=== PATIENT | female | born 1955 | race Caucasian/White ===

== ENCOUNTER 2017-05-27 11:40 | Observation (INO) | payer OTHER ==
--- NOTE | 2017-05-27 12:53 | PDOC ---
History of Present Illness - History of Present Illness Initial Comments: 05/27/17 14:17 Patient is a 61 year old female with significant medical hx of COPD, HTN, HLD, and hypothyroidism who is presenting to the ED with two days of intermittent left sided chest pain. The patient complains of chest pain which radiates to her left shoulder and left upper back. She characterizes her pain as "sharp" and rates it 9/10 in severity at its worst. The patient's pain worsens with taking a deep breath, lying supine, bending over, and coughing. Patient also endorses some lightheadedness. She notes that she has a chronic cough from COPD but has not had to increase her inhaler usage. Denies shortness of breath, recent heavy lifting or exertion, leg pain, leg swelling, nausea, vomiting, diarrhea, abdominal pain, fever, or chills. Denies recent travel or history of [place]. <Rhianna Hernandez - Last Filed: 05/27/17 15:53> - General History Source: Patient, Old Records Exam Limitations: No Limitations <Bertha Dacosta - Last Filed: 05/27/17 19:12> - General Chief Complaint: Shortness of Breath Stated Complaint: CHEST PAIN Time Seen by Provider: 05/27/17 12:44 Past History <Rhianna Hernandez - Last Filed: 05/27/17 15:53> - Past Medical History COPD: Yes HTN: Yes Hypercholesterolemia: Yes Thyroid Disease: Yes (hypo) - Psycho/Social/Smoking Cessation Hx Anxiety: No Suicidal Ideation: No Smoking History: Former smoker Have you smoked in the past 12 months: No Information on smoking cessation initiated: No Hx Alcohol Use: No Drug/Substance Use Hx: No Substance Use Type: None <Bertha Dacosta - Last Filed: 05/27/17 19:12> - Past Medical History Allergies/Adverse Reactions: Allergies Allergy/AdvReac Type Severity Reaction Status Date / Time No Known Allergies Allergy Verified 05/27/17 11:49 Home Medications: Ambulatory Orders Esomeprazole Magnesium [Nexium 24Hr] 40 mg PO BID 05/27/17 Levothyroxine [Synthroid -] 75 mcg PO DAILY 05/27/17 Olmesartan Medoxomil [Benicar (Nf)] 20 mg PO DAILY 05/27/17 Ranitidine HCl [Zantac] 300 mg PO HS 05/27/17 Salmeterol/Fluticasone [Advair 100Mcg/50Mcg -] 1 inh PO BID 05/27/17 Triamcinolone Acetonide [Nasacort] 10.8 ml NS BID 05/27/17 Review of Systems - Review of Systems Comments:: 05/27/17 14:28 GENERAL/CONSTITUTIONAL: No fever or chills. No weakness. HEAD, EYES, EARS, NOSE AND THROAT: No change in vision. No ear pain or discharge. No sore throat. CARDIOVASCULAR: Chest pain, lightheadedness. No shortness of breath. RESPIRATORY: Cough (chronic). No wheezing or hemoptysis. GASTROINTESTINAL: No nausea, vomiting, diarrhea or constipation. GENITOURINARY: No dysuria, frequency, or change in urination. MUSCULOSKELETAL: No joint or muscle swelling or pain. No neck or back pain. ENDOCRINE: No increased thirst. No abnormal weight change. SKIN: No rash NEUROLOGIC: No headache, vertigo, loss of consciousness, or change in strength/ sensation. <Rhianna Hernandez - Last Filed: 05/27/17 15:53> *Physical Exam - Vital Signs Last Vital Signs Temp Pulse Resp BP Pulse Ox 98.1 F 71 18 148/83 100 05/27/17 11:49 05/27/17 12:00 05/27/17 12:00 05/27/17 12:00 05/27/17 12:00 - Physical Exam Comments: 05/27/17 14:29 GENERAL: Awake, alert, and fully oriented, in no acute distress HEAD: No signs of trauma EYES: PERRLA, EOMI, sclera anicteric, conjunctiva clear ENT: Auricles normal inspection, hearing grossly normal, nares patent, oropharynx clear without exudates. Moist mucosa NECK: Normal ROM, supple, no lymphadenopathy, JVD, or masses LUNGS: Breath sounds equal, clear to auscultation bilaterally. No wheezes, and no crackles HEART: Regular rate and rhythm, normal S1 and S2, no murmurs, rubs or gallops ABDOMEN: Soft, nontender, normoactive bowel sounds. No guarding, no rebound. No masses EXTREMITIES: +1 bipedal edema. Normal range of motion. No clubbing or cyanosis. No cords, erythema, or tenderness NEUROLOGICAL: Cranial nerves II through XII grossly intact. Normal speech, normal gait SKIN: Warm, Dry, normal turgor, no rashes or lesions noted. HEMATOLOGIC/LYMPHATIC: No anemia, easy bleeding, or history of blood clots. ALLERGIC/IMMUNOLOGIC: No hives or skin allergy. <DavidRhianna - Last Filed: 05/27/17 15:53> - Vital Signs Last Vital Signs Temp Pulse Resp BP Pulse Ox 98.1 F 71 18 160/100 100 05/27/17 11:49 05/27/17 11:49 05/27/17 11:49 05/27/17 11:49 05/27/17 11:49 <Bertha Dacosta - Last Filed: 05/27/17 19:12> Heart Score/ECG Review - History History: Slightly suspicious - Electrocardiogram EKG: Normal - Age Age: 45-65 - Risk Factors Risk Factors Heart Score: Yes Hx Hypercholesterolemia, Yes Hx Hypertension, Yes Smoking History, Yes Positive family hx of cardiac disease, Yes Hx Obesity Based on the list above the patient has:: >/=3 risk factors or Hx atherosclerotic disease - Troponin Troponin: </= normal limit - Score Heart Score - Total: 3 <Bertha Dacosta - Last Filed: 05/27/17 19:12> ED Treatment Course - LABORATORY CBC & Chemistry Diagram: 05/27/17 13:15 05/27/17 13:15 - ADDITIONAL ORDERS Additional order review: Laboratory Results 05/27/17 05/27/17 13:15 13:15 D-Dimer < 200 Sodium 141 Potassium 4.1 Chloride 102 Carbon Dioxide 30 Anion Gap 9 BUN 19 H Creatinine 0.7 Creat Clearance w eGFR > 60 Random Glucose 87 Calcium 9.8 Total Bilirubin 0.4 AST 19 ALT 31 Alkaline Phosphatase 110 Creatine Kinase 186 CK-MB (CK-2) 3.855 H Troponin I < 0.02 B-Natriuretic Peptide 81.31 Total Protein 7.3 Albumin 3.8 05/27/17 13:15 RBC 4.87 MCV 81.8 MCHC 33.1 RDW 14.3 MPV 9.2 Neutrophils % 67.8 Lymphocytes % 21.3 Monocytes % 7.1 Eosinophils % 3.2 Basophils % 0.6 - RADIOLOGY Radiograph Interpretation: 05/27/17 15:53 Chest X-Ray Impression: Arthritic changes. No acute chest pathology. Reported By: Kapil Solorzano MD - Medications Given in the ED: ED Medications Discontinued Medications Generic Name Dose Route Start Last Admin Trade Name Kvng PRN Reason Stop Dose Admin Albuterol/Ipratropium 1 amp 05/27/17 13:09 05/27/17 13:33 Duoneb - NEB 05/27/17 13:10 1 amp ONCE ONE Administration Ketorolac Tromethamine 30 mg 05/27/17 13:09 05/27/17 13:33 Toradol Injection - IVPUSH 05/27/17 13:10 30 mg ONCE ONE Administration <Rhianna Hernandez - Last Filed: 05/27/17 15:53> - LABORATORY CBC & Chemistry Diagram: 05/27/17 13:15 05/27/17 13:15 <Bertha Dacosta - Last Filed: 05/27/17 19:12> Medical Decision Making - Medical Decision Making 05/27/17 13:16 61-year-old female with history of hypertension, hyperlipidemia, COPD who presents the emergency department with 2 day history of intermittent pleuritic chest pain and shortness of breath. Differential diagnosis includes but is not limited to: ACS, PE, pneumonia, pneumothorax, pericarditis, musculoskeletal, anemia, malignancy, toxic/metabolic derangement. Plan: 1. Labs 2. EKG 3. Chest x-ray 4. Pain management 5. Observe and reevaluate 6. We will send off a d-dimer is elevated will get CT scan of the chest 05/27/17 18:47 Addendum: Labs were reviewed and are noted in the EMR. EKG shows normal sinus rhythm at 70 bpm with no acute ST segment changes. The patient was given Toradol with moderate relief. D-dimer was negative therefore a CT scan of the chest was not pursued. The troponin was initially less than 0.02 and the CK although was normal had an elevated MB fraction. A second set of cardiac markers was sent with similar results. Given her cardiac risk factors will admit to telemetry observation for an echocardiogram and a stress test as well as serial cardiac markers and pain management. <Bertha Dacosta - Last Filed: 05/27/17 19:12> *DC/Admit/Observation/Transfer - Attestations Scribe Attestion: 05/27/17 14:30 Documentation prepared by Rhianna Hernandez, acting as electromedical equipment repairer for Bertha Dacosta MD. <Rhianna Hernandez - Last Filed: 05/27/17 15:53> - Discharge Dispostion Admit: Yes - Attestations Physician Attestion: 05/27/17 13:17 I, Dr. Bertha Dacosta, attest that the scribes documentation that appears above has been prepared under my direction and personally reviewed by me in its entirety. I confirmed that the note above accurately reflects all work, treatment, procedures, and medical decision-making performed by me. <Bertha Dacosta - Last Filed: 05/27/17 19:12> Diagnosis at time of Disposition: Chest pain, Shortness of breath - Discharge Dispostion Condition at time of disposition: Stable - Referrals Referrals: Kai Fragoso [Primary Care Provider] -
--- NOTE | 2017-05-27 12:53 | PDOC ---
History of Present Illness - General Chief Complaint: Shortness of Breath Stated Complaint: CHEST PAIN Time Seen by Provider: 05/27/17 12:44 History Source: Patient Exam Limitations: No Limitations - History of Present Illness Initial Comments: CHIEF COMPLAINT: HISTORY OF PRESENT ILLNESS: Vital signs on arrival are notable for BP of 160/100 REVIEW OF SYSTEMS: GENERAL/CONSTITUTIONAL: Subjective fever/chills. No weakness. No weight change. HEAD, EYES, EARS, NOSE AND THROAT: No change in vision. No ear pain or discharge. No sore throat. CARDIOVASCULAR: No chest pain or shortness of breath. RESPIRATORY: No cough, wheezing, or hemoptysis. GASTROINTESTINAL: See history of present illness. GENITOURINARY: No dysuria, frequency, or change in urination. MUSCULOSKELETAL: No joint or muscle swelling or pain. No neck or back pain. SKIN: No rash or easy bruising. NEUROLOGIC: No headache, vertigo, loss of consciousness, or loss of sensation. PHYSICAL EXAM: GENERAL: The patient is awake, alert, and fully oriented, in no acute distress. HEAD: Normal with no signs of trauma. ENT: Pupils equal, round and reactive to light, extraocular movements intact, sclera anicteric, conjunctiva clear. Neck supple. LUNGS: Clear to auscultation bilaterally. Normal excursion. No respiratory distress or use of accessory muscles. CV: RRR, S1/S2, no MRG. Cap refill < 2 sec. ABDOMEN: Soft, non-distended, non-tender even to deep palpation, no hepatomegaly or splenomegaly, no masses. EXTREMITIES: Normal range of motion, no edema. NEUROLOGICAL: Normal speech, normal gait. CN II-XII grossly intact. PSYCH: Normal mood, normal affect. SKIN: Warm, dry, normal turgor, no rashes or lesions noted. Past History - Past Medical History Allergies/Adverse Reactions: Allergies Allergy/AdvReac Type Severity Reaction Status Date / Time No Known Allergies Allergy Verified 05/27/17 11:49 Home Medications: Ambulatory Orders Esomeprazole Magnesium [Nexium 24Hr] 40 mg PO BID 05/27/17 Levothyroxine [Synthroid -] 75 mcg PO DAILY 05/27/17 Olmesartan Medoxomil [Benicar (Nf)] 20 mg PO DAILY 05/27/17 Ranitidine HCl [Zantac] 300 mg PO HS 05/27/17 Salmeterol/Fluticasone [Advair 100Mcg/50Mcg -] 1 inh PO BID 05/27/17 Triamcinolone Acetonide [Nasacort] 10.8 ml NS BID 05/27/17 COPD: Yes HTN: Yes Hypercholesterolemia: Yes Thyroid Disease: Yes (hypo) - Psycho/Social/Smoking Cessation Hx Anxiety: No Suicidal Ideation: No Smoking History: Former smoker Have you smoked in the past 12 months: No Information on smoking cessation initiated: No Hx Alcohol Use: No Drug/Substance Use Hx: No Substance Use Type: None *Physical Exam - Vital Signs Last Vital Signs Temp Pulse Resp BP Pulse Ox 98.1 F 71 18 160/100 100 05/27/17 11:49 05/27/17 11:49 05/27/17 11:49 05/27/17 11:49 05/27/17 11:49 Medical Decision Making - Medical Decision Making A/P:
[2017-05-27] MEDS ORDERED: KETOROLAC TROMETHAMINE 30 MG/1 ML VIAL IVPUSH ONE (13:09)
[2017-05-27] MEDS ORDERED: ALBUTEROL SO4 2.5/IPRATROPIUM 0.5 INH SOL 3 ML VIAL.NEB. NEB ONE ×2 (13:09→13:16)
[2017-05-27] MEDS ORDERED: KETOROLAC TROMETHAMINE 30 MG/1 ML VIAL ONE (13:17)
[2017-05-27 13:20] LABS: BASOPHIL 0.6 % (0-2.0); EOSINOPHIL 3.2 % (0-4.5); MCHC 33.1 g/dl (32.0-36.0); MEAN CELL VOLUME 81.8 fl (80-96); MEAN PLT VOLUME 9.2 fl (7.5-11.1); NEUTROPHILS 67.8 % (42.8-82.8); PLATELET COUNT 247 K/MM3 (134-434); RDW 14.3 % (11.6-15.6); WHITE BLOOD COUNT 9.1 K/mm3 (4.0-10.0)
[2017-05-27 13:47] LABS: ALBUMIN 3.8 g/dl (3.4-5.0); ANION GAP 9 (8-16); CALCIUM 9.8 mg/dL (8.5-10.1); CO2 30 mmol/L (21-32); CREATININE 0.7 mg/dL (0.55-1.02); GLUCOSE,RANDOM 87 mg/dL (74-106); SGOT/AST 19 U/L (15-37); SGPT/ALT 31 U/L (12-78)
[2017-05-27 13:51] LABS: ALK PHOS 110 U/L (45-117); BILIRUBIN,TOTAL 0.4 mg/dL (0.2-1.0); TOT PROT 7.3 g/dl (6.4-8.2); TROPONIN I < 0.02 ng/ml (0.00-0.05)
[2017-05-27 14:36] LABS: URINE APPEARANCE CLEAR; URINE BILIRUBIN NEGATIVE (NEGATIVE); URINE BLOOD 1+ (NEGATIVE); URINE COLOR LTYELLOW; URINE GLUCOSE (UA) NEGATIVE (NEGATIVE); URINE KETONE NEGATIVE (NEGATIVE); URINE LEUK ESTERASE TRACE (NEGATIVE); URINE NITRITE NEGATIVE (NEGATIVE); URINE PROTEIN NEGATIVE (NEGATIVE); URINE UROBILINOGEN NEGATIVE E.U./dl (0.2-1.0)
[2017-05-27 14:37] LABS: URINE MUCUS RARE; URINE RBC 4 /hpf (0-3); URINE WBC 2 /hpf (3-5)
[2017-05-27 18:05] LABS: TROPONIN I 0.02 ng/ml (0.00-0.05)
[2017-05-27] MEDS ORDERED: ASPIRIN 81 MG CHEWABLE TABLETS PO ONE (19:38)
--- NOTE | 2017-05-27 19:44 | HP ---
CHIEF COMPLAINT: Chest Pain, SOB PCP: HISTORY OF PRESENT ILLNESS: This is a 61 y/o female with a past medical history of Hypertension, Hyperlipidemia, COPD, Hypothyroid, GERD. who presents to the ED with midsternal chest pain radiating to her back x 2 days. Patient reports the quality as sharp, spasms intermittently increased with deep inspiration. Patient reports having episodes of nausea since arriving to the ED. Patient reports having a cough taking Mucinex with some relief. Patient reports last Echo several years ago, and Stress Test x 20 yrs without incident. Patient denies recent travel. Patient denies fever, chills, dizziness, AP, vomiting, diarrhea, constipation, dysuria. ER course was notable for: (1) Trop i- neg x2, CK- MB slightly elevated (2) Chest Xray- No acute pathology (3) EKG- NSR, minimal voltage LVH, No St & T wave abnormality, borderline ECG Recent Travel: None PAST MEDICAL HISTORY: See HPI PAST SURGICAL HISTORY: R- Rotator Cuff Social History: Smoking: Former quit 20 yrs ago Alcohol: Denies Drugs: Denies Lives with family, independent Family History: Brother: MD Mother: Lung Ca Father: Liver Ca Allergies No Known Allergies Allergy (Verified 05/27/17 11:49) HOME MEDICATIONS: Home Medications Medication Instructions Recorded Esomeprazole Magnesium [Nexium 40 mg PO BID 05/27/17 24Hr] Levothyroxine [Synthroid -] 75 mcg PO DAILY 05/27/17 Olmesartan Medoxomil [Benicar (Nf)] 20 mg PO DAILY 05/27/17 Ranitidine HCl [Zantac] 300 mg PO HS 05/27/17 Salmeterol/Fluticasone [Advair 1 inh PO BID 05/27/17 100Mcg/50Mcg -] Triamcinolone Acetonide [Nasacort] 10.8 ml NS BID 05/27/17 REVIEW OF SYSTEMS CONSTITUTIONAL: Absent: fever, chills, diaphoresis, generalized weakness, malaise, loss of appetite, weight change HEENT: Absent: rhinorrhea, nasal congestion, throat pain, throat swelling, difficulty swallowing, mouth swelling, ear pain, eye pain, visual changes CARDIOVASCULAR: chest pain, Absent: syncope, palpitations, irregular heart rate, lightheadedness, peripheral edema RESPIRATORY: cough, shortness of breath Absent: dyspnea with exertion, orthopnea, wheezing, stridor, hemoptysis GASTROINTESTINAL: Absent: abdominal pain, abdominal distension, nausea, vomiting, diarrhea, constipation, melena, hematochezia GENITOURINARY: Absent: dysuria, frequency, urgency, hesitancy, hematuria, flank pain, genital pain MUSCULOSKELETAL: Absent: myalgia, arthralgia, joint swelling, back pain, neck pain SKIN: Absent: rash, itching, pallor HEMATOLOGIC/IMMUNOLOGIC: Absent: easy bleeding, easy bruising, lymphadenopathy, frequent infections ENDOCRINE: Absent: unexplained weight gain, unexplained weight loss, heat intolerance, cold intolerance NEUROLOGIC: Absent: headache, focal weakness or paresthesias, dizziness, unsteady gait, seizure, mental status changes, bladder or bowel incontinence PSYCHIATRIC: Absent: anxiety, depression, suicidal or homicidal ideation, hallucinations. PHYSICAL EXAMINATION Vital Signs - 24 hr 05/27/17 05/27/17 05/27/17 11:49 12:00 16:20 Temperature 98.1 F Pulse Rate 71 Pulse Rate [ 71 64 Apical] Respiratory 18 18 20 Rate Blood Pressure 160/100 Blood Pressure 148/83 147/72 [Right Arm] O2 Sat by Pulse 100 100 100 Oximetry (%) GENERAL: Awake, alert, and fully oriented, in no acute distress. HEAD: Normal with no signs of trauma. EYES: Pupils equal, round and reactive to light, extraocular movements intact, sclera anicteric, conjunctiva clear. No lid lag. EARS, NOSE, THROAT: Ears normal, nares patent, oropharynx clear without exudates. Moist mucous membranes. NECK: Normal range of motion, supple without lymphadenopathy, JVD, or masses. LUNGS: Breath sounds equal, clear to auscultation bilaterally. No wheezes, and no crackles. No accessory muscle use. HEART: Regular rate and rhythm, normal S1 and S2 without murmur, rub or gallop. CP is non-reproducible upon palpation ABDOMEN: Soft, nontender, not distended, normoactive bowel sounds, no guarding, no rebound, no masses. No hepatomegaly or splenomegaly. MUSCULOSKELETAL: Normal range of motion at all joints. No bony deformities or tenderness. No CVA tenderness. UPPER EXTREMITIES: 2+ pulses, warm, well-perfused. No cyanosis. No clubbing. No peripheral edema. LOWER EXTREMITIES: 2+ pulses, warm, well-perfused. No calf tenderness. No peripheral edema. NEUROLOGICAL: Cranial nerves II-XII intact. Normal speech. Normal gait. PSYCHIATRIC: Cooperative. Good eye contact. Appropriate mood and affect. SKIN: Warm, dry, normal turgor, no rashes or lesions noted, normal capillary refill. Laboratory Results - last 24 hr 05/27/17 05/27/17 05/27/17 13:15 13:15 13:15 WBC 9.1 RBC 4.87 Hgb 13.2 Hct 39.8 MCV 81.8 MCHC 33.1 RDW 14.3 Plt Count 247 MPV 9.2 Neutrophils % 67.8 Lymphocytes % 21.3 Monocytes % 7.1 Eosinophils % 3.2 Basophils % 0.6 D-Dimer < 200 Sodium 141 Potassium 4.1 Chloride 102 Carbon Dioxide 30 Anion Gap 9 BUN 19 H Creatinine 0.7 Creat Clearance w eGFR > 60 Random Glucose 87 Calcium 9.8 Total Bilirubin 0.4 AST 19 ALT 31 Alkaline Phosphatase 110 Creatine Kinase 186 CK-MB (CK-2) 3.855 H Troponin I < 0.02 B-Natriuretic Peptide 81.31 Total Protein 7.3 Albumin 3.8 Urine Color Urine Appearance Urine pH Urine Protein Urine Glucose (UA) Urine Ketones Urine Blood Urine Nitrite Urine Bilirubin Urine Urobilinogen Ur Leukocyte Esterase Urine RBC Urine WBC Ur Epithelial Cells Urine Mucus 05/27/17 05/27/17 05/27/17 14:31 16:12 17:09 WBC RBC Hgb Hct MCV MCHC RDW Plt Count MPV Neutrophils % Lymphocytes % Monocytes % Eosinophils % Basophils % D-Dimer Sodium Potassium Chloride Carbon Dioxide Anion Gap BUN Creatinine Creat Clearance w eGFR Random Glucose Calcium Total Bilirubin AST ALT Alkaline Phosphatase Creatine Kinase Cancelled 174 CK-MB (CK-2) 3.960 H Troponin I Cancelled 0.02 B-Natriuretic Peptide Total Protein Albumin Urine Color Ltyellow Urine Appearance Clear Urine pH 6.0 Urine Protein Negative Urine Glucose (UA) Negative Urine Ketones Negative Urine Blood 1+ H Urine Nitrite Negative Urine Bilirubin Negative Urine Urobilinogen Negative Ur Leukocyte Esterase Trace H Urine RBC 4 Urine WBC 2 Ur Epithelial Cells Rare Urine Mucus Rare ASSESSMENT/PLAN: This is a 61 y/o female with a PMHx of: HTN, HLD, COPD, Hypothyroid, GERD. Placed in Tele [facility] Chest Pain r/o ACS for further evaluation of their emergent condition. Plan: 1. Card: Chest Pain - r/o ACS vs musculoskeletal strain secondary to excessive cough - Tele monitoring - HEART Score 4 - JULIENNE 1 - Chest Xray- NAD - EKG reviewed no study avail for comparison - Echo in am -Stress Test - Will consider Cardiology consult if CE +, +stress test - Asa ordered for tonight, then daily - NTG sl ordered x1 now - Hypertension - On arrival uncontrolled, now stable - Continue home meds - Monitor BP and renal function - Hyperlipidemia - Continue statin - Monitor LFTs - COPD - stable - Continue Advair, Nasocort - Albuterol neb prn - Hypothyroidism - Continue Levothyroxine - TSH in am - GERD - Continue Zantac Problem List - Problem (1) Chest pain Code(s): R07.9 - CHEST PAIN, UNSPECIFIED (2) Shortness of breath Code(s): R06.02 - SHORTNESS OF BREATH (3) COPD (chronic obstructive pulmonary disease) Code(s): J44.9 - CHRONIC OBSTRUCTIVE PULMONARY DISEASE, UNSPECIFIED (4) HTN (hypertension) Code(s): I10 - ESSENTIAL (PRIMARY) HYPERTENSION (5) HLD (hyperlipidemia) Code(s): E78.5 - HYPERLIPIDEMIA, UNSPECIFIED (6) Hypothyroidism Code(s): E03.9 - HYPOTHYROIDISM, UNSPECIFIED (7) GERD (gastroesophageal reflux disease) Code(s): K21.9 - GASTRO-ESOPHAGEAL REFLUX DISEASE WITHOUT ESOPHAGITIS (8) DVT prophylaxis Code(s): BSG6378 - Visit type - Emergency Visit Emergency Visit: Yes ED Registration Date: 05/27/17 Care time: The patient presented to the Emergency Department on the above date and was hospitalized for further evaluation of their emergent condition. - New Patient This patient is new to me today: Yes Date on this admission: 05/27/17 - Critical Care Critical Care patient: No
[2017-05-27] MEDS ORDERED: ASPIRIN 81 MG CHEWABLE TABLETS ONE (19:54)
[2017-05-27] MEDS ORDERED: NITROGLYCERIN SUBLINGUAL 1/150 0.4 MG TAB SL ONE (20:21)
[2017-05-27] MEDS ORDERED: RANITIDINE HCL 150 MG TABLET (FP) PO SCH (22:00)
[2017-05-27] MEDS ORDERED: FLUTICASONE/SALMETEROL 100 MCG/50 MCG DISKUS IH SCH (22:00)
[2017-05-27] MEDS ORDERED: PATIENT'S OWN MEDICATION (NON-FORMULARY) (Esomeprazole Magnesium [Nexium 24hr] 40 MG) PO SCH (22:00)
[2017-05-27] MEDS ORDERED: RANITIDINE HCL 150 MG TABLET (FP) ONE (23:53)
[2017-05-27] MEDS ORDERED: PANTOPRAZOLE 40 MG TABLET (FP) ONE (23:53)
[2017-05-28] MEDS: PANTOPRAZOLE 40 MG TABLET (FP) PO SCH ×2 (00:04→11:02)
[2017-05-28 00:38] LABS: TROPONIN I < 0.02 ng/ml (0.00-0.05)
[2017-05-28 01:22] VITALS: BMI 33.0
[2017-05-28] MEDS ORDERED: KETOROLAC TROMETHAMINE 30 MG/1 ML VIAL IVPUSH PRN (01:38)
[2017-05-28 03:20] LABS: CHOLESTEROL 152 mg/dL (50-200); LDL CHOLESTEROL (ONLY SJRH) 75 mg/dL (5-100)
--- NOTE | 2017-05-28 03:30 | HOSP ---
Subjective - Review of Symptoms Events since last encounter: Hospitalist Encounter Notified by RN, that the patient is requesting Hep C screening. Explained to RN , that the screening should be done in outpatient with her PCP who can f/u with screening results, since the test is a send out. Physical Examination Vital Signs: Vital Signs Temperature 97.6 F 05/28/17 00:45 Pulse Rate 70 05/28/17 00:45 Respiratory Rate 18 05/28/17 00:45 Blood Pressure 120/55 05/28/17 00:45 O2 Sat by Pulse Oximetry (%) 99 05/28/17 00:45 Labs: Laboratory Results - last 24 hr 05/27/17 05/27/17 05/27/17 03:00 13:15 13:15 WBC 9.1 RBC 4.87 Hgb 13.2 Hct 39.8 MCV 81.8 MCHC 33.1 RDW 14.3 Plt Count 247 MPV 9.2 Neutrophils % 67.8 Lymphocytes % 21.3 Monocytes % 7.1 Eosinophils % 3.2 Basophils % 0.6 D-Dimer < 200 Sodium Potassium Chloride Carbon Dioxide Anion Gap BUN Creatinine Creat Clearance w eGFR Random Glucose Calcium Total Bilirubin AST ALT Alkaline Phosphatase Creatine Kinase CK-MB (CK-2) Troponin I B-Natriuretic Peptide Total Protein Albumin Triglycerides 143 Cholesterol 152 Total LDL Cholesterol 75 HDL Cholesterol 64 H Urine Color Urine Appearance Urine pH Ur Specific [place] Urine Protein Urine Glucose (UA) Urine Ketones Urine Blood Urine Nitrite Urine Bilirubin Urine Urobilinogen Ur Leukocyte Esterase Urine RBC Urine WBC Ur Epithelial Cells Urine Mucus 05/27/17 05/27/17 05/27/17 13:15 14:31 16:12 WBC RBC Hgb Hct MCV MCHC RDW Plt Count MPV Neutrophils % Lymphocytes % Monocytes % Eosinophils % Basophils % D-Dimer Sodium 141 Potassium 4.1 Chloride 102 Carbon Dioxide 30 Anion Gap 9 BUN 19 H Creatinine 0.7 Creat Clearance w eGFR > 60 Random Glucose 87 Calcium 9.8 Total Bilirubin 0.4 AST 19 ALT 31 Alkaline Phosphatase 110 Creatine Kinase 186 Cancelled CK-MB (CK-2) 3.855 H Troponin I < 0.02 Cancelled B-Natriuretic Peptide 81.31 Total Protein 7.3 Albumin 3.8 Triglycerides Cholesterol Total LDL Cholesterol HDL Cholesterol Urine Color Ltyellow Urine Appearance Clear Urine pH 6.0 Ur Specific [place] 1.020 Urine Protein Negative Urine Glucose (UA) Negative Urine Ketones Negative Urine Blood 1+ H Urine Nitrite Negative Urine Bilirubin Negative Urine Urobilinogen Negative Ur Leukocyte Esterase Trace H Urine RBC 4 Urine WBC 2 Ur Epithelial Cells Rare Urine Mucus Rare 05/27/17 05/27/17 17:09 23:50 WBC RBC Hgb Hct MCV MCHC RDW Plt Count MPV Neutrophils % Lymphocytes % Monocytes % Eosinophils % Basophils % D-Dimer Sodium Potassium Chloride Carbon Dioxide Anion Gap BUN Creatinine Creat Clearance w eGFR Random Glucose Calcium Total Bilirubin AST ALT Alkaline Phosphatase Creatine Kinase 174 146 CK-MB (CK-2) 3.960 H Troponin I 0.02 < 0.02 B-Natriuretic Peptide Total Protein Albumin Triglycerides Cholesterol Total LDL Cholesterol HDL Cholesterol Urine Color Urine Appearance Urine pH Ur Specific [place] Urine Protein Urine Glucose (UA) Urine Ketones Urine Blood Urine Nitrite Urine Bilirubin Urine Urobilinogen Ur Leukocyte Esterase Urine RBC Urine WBC Ur Epithelial Cells Urine Mucus Current Medications Generic Name Dose Route Start Last Admin Trade Name Freq PRN Reason Stop Dose Admin Aspirin 81 mg 05/28/17 10:00 Asa - PO DAILY REPLACED BY [facility] Budesonide/Formoterol Fumarate 2 puff 05/28/17 10:00 Symbicort 160/4.5mcg - IH BID REPLACED BY [facility] Fluticasone Propionate 1 spray 05/28/17 10:00 Flonase - NS BID REPLACED BY [facility] Ketorolac Tromethamine 30 mg 05/28/17 01:38 05/28/17 02:05 Toradol Injection - IVPUSH 06/02/17 01:37 30 mg Q6H PRN Administration PAIN Levothyroxine Sodium 75 mcg 05/28/17 07:00 Synthroid - PO ACBK DORENE Pantoprazole Sodium 40 mg 05/27/17 22:00 05/28/17 00:04 Protonix - PO 40 mg BID DORENE Administration Ranitidine HCl 300 mg 05/27/17 22:00 05/28/17 00:04 Zantac - PO Not Given HS REPLACED BY [facility] Valsartan 160 mg 05/28/17 10:00 Diovan - PO DAILY REPLACED BY [facility] Last Vital Signs Temp Pulse Resp BP Pulse Ox 97.6 F 70 18 120/55 99 05/28/17 00:45 05/28/17 00:45 05/28/17 00:45 05/28/17 00:45 05/28/17 00:45 Intake & Output 06/05/26/17 05/27/17 05/28/17 23:59 23:59 23:59 23:59 Weight 72.575 kg 76.839 kg
[2017-05-28 06:47] LABS: BASOPHIL 0.7 % (0-2.0); EOSINOPHIL 3.3 % (0-4.5); MCH 26.5 pg (25.7-33.7); MCHC 32.4 g/dl (32.0-36.0); MEAN CELL VOLUME 81.7 fl (80-96); MEAN PLT VOLUME 9.6 fl (7.5-11.1); NEUTROPHILS 65.4 % (42.8-82.8); PLATELET COUNT 234 K/MM3 (134-434); WHITE BLOOD COUNT 9.3 K/mm3 (4.0-10.0)
[2017-05-28] MEDS ORDERED: LEVOTHYROXINE NA 75 MCG TABLET (FP) PO SCH (07:00)
[2017-05-28 07:37] LABS: ANION GAP 8 (8-16); CALCIUM 9.3 mg/dL (8.5-10.1); CO2 28 mmol/L (21-32); CREATININE 0.8 mg/dL (0.55-1.02); GLUCOSE,RANDOM 91 mg/dL (74-106); PHOSPHOROUS 3.9 mg/dL (2.5-4.9)
[2017-05-28 07:48] LABS: THYROID STIMULATING HORMONE 2.92 uIU/ml (0.358-3.74)
[2017-05-28 09:12] LABS: HIV 1 & 2 AB NEGATIVE; HIV 1 AGp24 NEGATIVE
[2017-05-28] MEDS ORDERED: PATIENT'S OWN MEDICATION (NON-FORMULARY) (Olmesartan Medoxomil 20 MG) PO SCH (10:00)
[2017-05-28] MEDS ORDERED: BUDESONIDE/FORMETEROL FUMARATE 160/4.5 mcg INHALER IH SCH (10:00)
[2017-05-28] MEDS ORDERED: FLUTICASONE PROP 0.05% 16 GM NASAL SPRAY NS SCH (10:00)
[2017-05-28] MEDS ORDERED: VALSARTAN 160 MG TABLET (UD) PO SCH (10:00)
[2017-05-28] MEDS ORDERED: ASPIRIN 81 MG CHEWABLE TABLETS PO SCH (10:00)
[2017-05-28] MEDS ORDERED: FLUTICASONE/SALMETEROL 100 MCG/50 MCG DISKUS IH SCH (10:00)
--- NOTE | 2017-05-28 12:54 | TRE ---
Protocol Name : MICHAEL Max Work Load (METS*10) : 70 Time In Exercise Phase : 00:06:04 Max. Systolic BP : 168 mmHg Max Diastolic BP : 84 mmHg Max Heart Rate : 137 BPM Max Predicted Heart Rate : 160 BPM Reason For Termination : Target Heart Rate Achieved Stress Protocol : MICHAEL Rest HR : 82 BPM PeakEx METs : 7.0 METS Recovery ECG Response (OLD) : Diagnosis : [address] depression at peak exercise. no arrhythmias or ischemic symptoms Impressions positive EST for sighs of inducible ischemia. Confirmed by CHANNING BURRIS, GISEL ([id number]) on 05/28/2017 12:53:55 PM
--- NOTE | 2017-05-28 13:04 | CON.CARD ---
Consult Consult Specialty:: cardiology Referred by:: Lauren Reason for Consultation:: Chest pain - History of Present Illness Chief Complaint: Chest pain History of Present Illness: The patient is a 61-year-old female, former smoker, history of hypertension, hyperlipidemia, COPD, hypothyroidism, GERD, now presenting with left sided chest pains radiating to the back. The patient stated that the symptoms began approximately 2 days ago. The symptoms will occur when the patient moves her arm to the back or takes deep breaths. The patient reports no exertional symptoms. Denied chest pains, shortness of breath, palpitations while walking. The patient had a stress ECG test earlier today. She walked for 6 minutes on the Clay protocol, achieving 85% MPHR. The study was stopped because of fatigue. She had no chest pains on the treadmill. The ECG showed upsloping ST depressions. My unofficial interpretation is that this was a normal stress ECG. - History Source History Provided By: Patient, Medical Record Limitations to Obtaining History: No Limitations - Past Medical History Cardio/Vascular: Yes: HTN, Hyperlipdemia Pulmonary: Yes: COPD Gastrointestinal: Yes: GERD - Alcohol/Substance Use Hx Alcohol Use: No History of Substance Use: reports: None - Smoking History Smoking history: Former smoker Have you smoked in the past 12 months: No If you are a former smoker, when did you quit?: 20 years ago Home Medications - Allergies Allergies/Adverse Reactions: Allergies Allergy/AdvReac Type Severity Reaction Status Date / Time No Known Allergies Allergy Verified 05/27/17 11:49 - Home Medications Home Medications: Ambulatory Orders Esomeprazole Magnesium [Nexium 24Hr] 40 mg PO ACBK 05/27/17 Levothyroxine [Synthroid -] 75 mcg PO DAILY 05/27/17 Olmesartan Medoxomil [Benicar (Nf)] 40 mg PO DAILY 05/27/17 Ranitidine HCl [Zantac] 300 mg PO HS 05/27/17 Triamcinolone Acetonide [Nasacort] 10.8 ml NS BID 05/27/17 Salmeterol/Fluticasone [Advair 500Mcg/50Mcg] 1 inh PO BID 05/28/17 Review of Systems - Review of Systems Constitutional: reports: No Symptoms Eyes: reports: No Symptoms HENT: reports: No Symptoms Neck: reports: No Symptoms Cardiovascular: reports: Chest Pain Respiratory: reports: Other (Pleuritic chest pain) Genitourinary: reports: No Symptoms Breasts: reports: No Symptoms Reported Musculoskeletal: reports: No Symptoms Integumentary: reports: No Symptoms Neurological: reports: No Symptoms Endocrine: reports: No Symptoms Hematology/Lymphatic: reports: No Symptoms Psychiatric: reports: No Symptoms - Risk Factors Known Risk Factors: Yes: Hypercholesterolemia, Hypertension Vital Signs: Vital Signs Temperature 97.7 F 05/28/17 09:27 Pulse Rate 70 05/28/17 09:27 Respiratory Rate 17 05/28/17 09:27 Blood Pressure 134/77 05/28/17 09:27 O2 Sat by Pulse Oximetry (%) 99 05/28/17 00:45 Constitutional: Yes: Well Nourished, No Distress Eyes: Yes: WNL HENT: Yes: WNL Neck: Yes: WNL, Supple Respiratory: Yes: WNL Gastrointestinal: Yes: WNL Renal/: Yes: WNL Cardiovascular: Yes: WNL, Regular Rate and Rhythm Heart Sounds: Yes: S1, S2 Musculoskeletal: Yes: Muscle Pain Extremities: Yes: WNL Edema: No Peripheral Pulses: 2+ Left Carotid, 2+ Right Carotid, 2+ Left Femoral, 2+ Right Femoral, 2+ Left Popliteal, 2+ Right Popliteal, 2+ Left Doralis Pedis, 2+ Right Dorsalis Pedis Integumentary: Yes: WNL Neurological: Yes: WNL ...Motor Strength: WNL Psychiatric: Yes: WNL - Other Data Labs, Other Data: CBC, BMP 05/28/17 05:20 05/28/17 05:20 Troponin, BNP 05/27/17 23:50 Troponin I < 0.02 Troponin, BNP 05/27/17 23:50 Troponin I < 0.02 Assessment/Plan 69-year-old female presenting with reproducible chest and back pains. Currently comfortable. There is no evidence of ischemia nor acute coronary syndrome. The patient walked for 6 minutes on a Clay protocol earlier today. She had absolutely no chest pain on the treadmill. The ECG showed upsloping ST depressions, with a wavy baseline. My unofficial interpretation is that this is not ischemic. There is no need for further cardiac workup at this point. There is no need for cardiac monitoring. I believe that the patient may safely be discharged. Outpatient follow-up with our group. Please call us PRN.
[2017-05-28 14:05] VITALS: BP 127/84; PULSE 74; TEMP 98.1
--- NOTE | 2017-05-28 15:54 | DS ---
Physical Exam: SUBJECTIVE: Patient seen and examined OBJECTIVE: Vital Signs Period Temp Pulse Resp BP Sys/Marley Pulse Ox Last 24 Hr 97.1 F-98.2 F 65-98 17-18 120-161/55-97 99-99 PHYSICAL EXAM GENERAL: The patient is awake, alert, and fully oriented, in no acute distress. HEAD: Normal with no signs of trauma. EYES: PERRL, extraocular movements intact, sclera anicteric, conjunctiva clear. ENT: Ears normal, nares patent, oropharynx clear without exudates, moist mucous membranes. NECK: Trachea midline, full range of motion, supple. LUNGS: Breath sounds equal, clear to auscultation bilaterally, no wheezes, no crackles, no accessory muscle use. HEART: Regular rate and rhythm, S1, S2 without murmur, rub or gallop. ABDOMEN: Soft, nontender, nondistended, normoactive bowel sounds, no guarding, no rebound, no hepatosplenomegaly, no masses. EXTREMITIES: 2+ pulses, warm, well-perfused, no edema. NEUROLOGICAL: Cranial nerves II through XII grossly intact. Normal speech, gait not observed. PSYCH: Normal mood, normal affect. SKIN: Warm, dry, normal turgor, no rashes or lesions noted. LABS Laboratory Results - last 24 hr 05/27/17 05/28/17 05/28/17 23:50 05:20 05:20 WBC 9.3 RBC 4.69 Hgb 12.4 Hct 38.3 MCV 81.7 MCHC 32.4 RDW 14.0 Plt Count 234 MPV 9.6 Neutrophils % 65.4 Lymphocytes % 23.2 Monocytes % 7.4 Eosinophils % 3.3 Basophils % 0.7 Sodium 142 Potassium 4.2 Chloride 106 Carbon Dioxide 28 Anion Gap 8 BUN 21 H Creatinine 0.8 Random Glucose 91 Hemoglobin A1c % Calcium 9.3 Phosphorus 3.9 Magnesium 2.0 Creatine Kinase 146 Troponin I < 0.02 TSH 2.92 HIV 1&2 Antibody Screen HIV P24 Antigen 05/28/17 05/28/17 05:20 05:20 WBC RBC Hgb Hct MCV MCHC RDW Plt Count MPV Neutrophils % Lymphocytes % Monocytes % Eosinophils % Basophils % Sodium Potassium Chloride Carbon Dioxide Anion Gap BUN Creatinine Random Glucose Hemoglobin A1c % 6.0 Calcium Phosphorus Magnesium Creatine Kinase Troponin I TSH HIV 1&2 Antibody Screen Negative HIV P24 Antigen Negative HOSPITAL COURSE: Date of Admission:05/27/17 Date of Discharge: 05/28/17 Discharge Summary Reason For Visit: SOB/CHEST PAIN Current Active Problems COPD (chronic obstructive pulmonary disease) (Acute) Chest pain (Acute) DVT prophylaxis (Acute) GERD (gastroesophageal reflux disease) (Acute) HLD (hyperlipidemia) (Acute) HTN (hypertension) (Acute) Hypothyroidism (Acute) Shortness of breath (Acute) Condition: Stable - Instructions Diet, Activity, Other Instructions: It is strongly recommended that you followup with Dr. Case, the employment specialist/program manager who saw you during your hospital stay. His contact information is enclosed in this discharge packet. You should call his office and make an appointment. Return to the emergency department for any new or worsening symptoms. Referrals: Kai Fragoso [Primary Care Provider] - Cesar Case MD [Staff Physician] - 2 Weeks - Home Medications Comprehensive Discharge Medication List: Ambulatory Orders Esomeprazole Magnesium [Nexium 24Hr] 40 mg PO ACBK 05/27/17 Levothyroxine [Synthroid -] 75 mcg PO DAILY 05/27/17 Olmesartan Medoxomil [Benicar -] 40 mg PO DAILY 05/27/17 Ranitidine HCl [Zantac] 300 mg PO HS 05/27/17 Triamcinolone Acetonide [Nasacort] 10.8 ml NS BID 05/27/17 Aspirin [ASA -] 81 mg PO DAILY tab.chew 05/28/17 Salmeterol/Fluticasone [Advair 100Mcg/50Mcg -] 1 puff IH BID inhaler 05/28/17 Salmeterol/Fluticasone [Advair 500Mcg/50Mcg -] 1 inh PO BID 05/28/17
--- NOTE | 2017-05-30 17:29 | EKG ---
Test Reason : Blood Pressure : / mmHG Vent. Rate : 068 BPM Atrial Rate : 068 BPM P-R Int : 160 ms QRS Dur : 082 ms QT Int : 382 ms P-R-T Axes : 054 -27 039 degrees QTc Int : 406 ms NORMAL SINUS RHYTHM MINIMAL VOLTAGE CRITERIA FOR LVH, MAY BE NORMAL VARIANT BORDERLINE ECG WHEN COMPARED WITH ECG OF 08-SEP-2007 12:04, NO SIGNIFICANT CHANGE WAS FOUND Confirmed by MD MARILY, ANDREW ([id number]) on 05/30/2017 5:29:19 PM Referred By: Confirmed By:ANDREW CALIXTO MD
== END 2017-05-28 16:10 | disposition home or self-care (01) ==
LOC: JER 11:40 → JERBED 20:24 → JICU 05-28 00:24 → J2W 05-28 01:51
PROVIDERS: ADMIT Internal Medicine; ATTEND Nurse Practitioner Acute Care
PROC: 3E0333Z Introduction of Anti-inflammatory into Peripheral Vein, Percutaneous Approach (ICD-10-PCS; principal; 2017-05-27)
PROC: 3E0F7GC Introduction of Other Therapeutic Substance into Respiratory Tract, Via Natural or Artificial Opening (ICD-10-PCS; 2017-05-27)
DX: R07.9 Chest pain, unspecified (principal); R06.02 Shortness of breath; I10 Essential (primary) hypertension; E78.5 Hyperlipidemia, unspecified; E03.9 Hypothyroidism, unspecified; J44.9 Chronic obstructive pulmonary disease, unspecified; Z87.891 Personal history of nicotine dependence; K21.9 Gastro-esophageal reflux disease without esophagitis
CPT/HCPCS: 36415; 71020-TC; 80048; 80053; 80061; 81003; 81015; 82550; 82553; 83036; 83721; 83735; 83880; 84100; 84443; 84484; 85025; 85379; 87389; 93005; 93010; 93017; 93018; 93306-TC; 99285-25; G0378

== ENCOUNTER 2019-11-23 20:22 | Emergency (ER) | payer BC ==
--- NOTE | 2019-11-23 20:28 | PDOC ---
History of Present Illness - General Chief Complaint: Injury Stated Complaint: RIGHT FOOT INJURY Time Seen by Provider: 11/23/19 20:27 History Source: Patient - History of Present Illness Initial Comments: 11/23/19 20:40 right 4th toe bruising Is this a multiple visit Asthma Patient?: No Timing/Duration: 24 hours Severity: mild Associated Symptoms: reports: denies symptoms Aspirin Received prior to arrival: Yes: 81 mg x 1 Past History - Travel Traveled outside of the country in the last 30 days: No Close contact w/someone who was outside of country & ill: No - Past Medical History Allergies/Adverse Reactions: Allergies Allergy/AdvReac Type Severity Reaction Status Date / Time No Known Allergies Allergy Verified 11/23/19 20:44 Home Medications: Ambulatory Orders Levothyroxine [Synthroid -] 75 mcg PO DAILY 05/27/17 Olmesartan Medoxomil [Benicar -] 40 mg PO DAILY 05/27/17 Triamcinolone Acetonide [Nasacort] 10.8 ml NS BID 05/27/17 Aspirin [ASA -] 81 mg PO DAILY tab.chew 05/28/17 Salmeterol/Fluticasone [Advair 500Mcg/50Mcg -] 1 inh PO BID 05/28/17 Ascorbic Acid [C-1000] 1,000 mg PO DAILY 11/23/19 Atorvastatin Ca [Lipitor] 10 mg PO HS 11/23/19 Cholecalciferol (Vitamin D3) [Vitamin D3] 2,000 unit PO DAILY 11/23/19 Mecobalamin [B-12] 2,000 mcg SL DAILY 11/23/19 Asthma: Yes COPD: Yes GI Disorders: Yes (gerd) HTN: Yes Hypercholesterolemia: Yes Thyroid Disease: Yes (hypothyroidism) - Surgical History Orthopedic Surgery: Yes (rotator cuff sx) - Psycho Social/Smoking Cessation Hx Smoking History: Former smoker Have you smoked in the past 12 months: No If you are a former smoker, when did you quit?: 20 years ago Cigars Per Day: 0 Hx Alcohol Use: No Drug/Substance Use Hx: No Substance Use Type: None Hx Substance Use Treatment: No Review of Systems - Review of Systems Constitutional: No: Symptoms Reported, See HPI, Chills, Diaphoresis, Fever, Loss of Appetite, Malaise, Night Sweats, Weakness, Weight Stable, Unintentional Wgt. Loss, Unexplained wgt Loss, Other HEENTM: No: Symptoms Reported, See HPI, Eye Pain, Blurred Vision, Tearing, Recent change in vision, Double Vision, Cataracts, Ear Pain, Ocular Prothesis, Ear Discharge, Nose Pain, Nose Congestion, Tinnitus, Nose Bleeding, Hearing Loss , Throat Pain, Throat Swelling, Mouth Pain, Dental Problems, Difficulty Swallowing, Mouth Swelling, Other Respiratory: No: Symptoms reported, See HPI, Cough, Orthopnea, Shortness of Breath, SOB with Exertion, SOB at Rest, Stridor, Wheezing, Productive cough, Hemoptysis, Other Cardiac (ROS): No: Symptoms Reported, See HPI, Chest Pain, Edema, Irregular Heart Rate, Lightheadedness, Palpitations, Syncope, Chest Tightness, Other ABD/GI: No: Symptoms Reported, See HPI, Abdominal Distended, Abd. Pain w/ defecation, Blood Streaked Bowels, Constipated, Diarrhea, Difficulty Swallowing , Nausea, Poor Appetite, Poor Fluid Intake, Rectal Bleeding, Vomiting, Indigestion, Abdominal cramping, Tarry Stools, Other : No: Symptoms Reported, See HPI, Burning, Dysuria, Discharge, Frequency, Flank Pain, Hematuria, Incontinence, Pain, Urgency, Testicular Mass, Testicular Swelling, Lesions, Testicular Pain, Other Musculoskeletal: Yes: Joint Pain (right hip) Integumentary: Yes: Change in Color (left index finger ). No: Symptoms Reported , See HPI, Bruising, Change in Hair/Nails, Dryness, Erythema, Flushing, Lesions , Lumps, Pallor, Pruritus, Rash, Sweating, Other Neurological: No: Symptoms reported, See HPI, Headache, Numbness, Paresthesia, Pre-Existing Deficit, Seizure, Tingling, Tremors, Weakness, Unsteady Gait, Ataxia, Dizziness, Other Psychiatric: No: Anxiety, Depression, Frequent Crying, Stressors, Sleep Pattern Change, Emotional Problems, Mood Swings, Change in Appetite, Other Endocrine: No: Symptoms Reported, See HPI, Excessive Sweating, Flushing, Intolerance to Cold, Intolerance to Heat, Increased Hunger, Increased Thirst, Increased Urine, Unexplained Weight Gain, Unexplained Weight Loss, Change in Weight, Other Hematologic/Lymphatic: No: Symptoms Reported, See HPI, Anemia, Blood Clots, Easy Bleeding, Easy Bruising, Bleeding Diathesis, Lymph Node Abnormalities, Swollen Glands, Other *Physical Exam - Physical Exam General Appearance: Yes: Nourished, Appropriately Dressed. No: Apparent Distress HEENT: positive: EOMI, EASTON, Normal ENT Inspection, Normal Voice, Symmetrical Neck: positive: Normal Thyroid, Supple. negative: Tender, Trachea midline Respiratory/Chest: positive: Lungs Clear, Normal Breath Sounds. negative: Respiratory Distress, Accessory Muscle Use Cardiovascular: positive: Regular Rhythm, Regular Rate, S1, S2 Gastrointestinal/Abdominal: positive: Normal Bowel Sounds, Soft Musculoskeletal: positive: Normal Inspection. negative: CVA Tenderness Extremity: positive: Normal Capillary Refill, Normal Inspection, Normal Range of Motion, Coldness (all fingers cold) Integumentary: positive: Normal Color, Dry, Cold (foners) Neurologic: positive: [employer] II-XII NML intact, Fully Oriented, Alert, Normal Mood/ Affect, Normal Response, Motor Strength 5/5 Medical Decision Making - Medical Decision Making 11/23/19 20:46 Pt will have a foot XR; if broken I will huma tape her toe and send her with ortho follow up. 11/23/19 20:54 Pt has a hx of obesity and HTN and high cholesterol. She has COPD and she quit smoking 20 years ago. 11/23/19 21:08 XRAY normal; pt is stable for discharge home. Follow with Daphne villarreals as needed Discharge - Discharge Information Problems reviewed: Yes Clinical Impression/Diagnosis: Toe contusion Condition: Stable - Admission No - Follow up/Referral Referrals: Kai Fragoso [Primary Care Provider] - - Patient Discharge Instructions Patient Printed Discharge Instructions: Toe Sprain - Post Discharge Activity
[2019-11-23 20:40] VITALS: BP 173/83; PULSE 95; TEMP 98.5; BMI 32.4
== END 2019-11-23 21:09 | disposition home or self-care (01) ==
LOC: FER 20:22
DX: S90.121A Contusion of right lesser toe(s) without damage to nail, initial encounter (principal); X58.XXXA Exposure to other specified factors, initial encounter; Y93.9 Activity, unspecified; Y92.9 Unspecified place or not applicable; I10 Essential (primary) hypertension; E78.00 Pure hypercholesterolemia, unspecified; E03.9 Hypothyroidism, unspecified; J44.9 Chronic obstructive pulmonary disease, unspecified; K21.9 Gastro-esophageal reflux disease without esophagitis; Z87.891 Personal history of nicotine dependence; E66.9 Obesity, unspecified; Z68.32 Body mass index [BMI] 32.0-32.9, adult
CPT/HCPCS: 73630-TC-RT-FY; 99282-25

== ENCOUNTER 2024-05-08 18:34 | Inpatient (IN) | payer OTHER, BC ==
[2024-05-08 21:33] LABS: BASO % 0.8 % (0-2.0); EOS % 2.6 % (0-4.5); LYMPH % 24.8 % (8-40); MCH 27.6 pg (25.7-33.7); MCHC 33.3 g/dl (32.0-36.0); MEAN CELL VOLUME 82.9 fl (80-96); MEAN PLT VOLUME 8.5 fl (7.5-11.1); MONO % 7.9 % (3.8-10.2); NEUT % 63.9 % (42.8-82.8); PLATELET COUNT 256 10^3/uL (134-434); RBC 4.71 M/mm3 (3.60-5.2); RDW 13.9 % (11.6-15.6); WHITE BLOOD COUNT 8.6 K/mm3 (4.0-10.0)
[2024-05-08 21:48] LABS: CHLORIDE 116 mmol/L (98-107); SODIUM 147 mmol/L (136-145)
[2024-05-08 21:51] LABS: ALBUMIN 2.9 g/dl (3.4-5.0); BLOOD UREA NITROGEN 12.6 mg/dL (7-18); CO2 24 mmol/L (21-32); GLUCOSE,RANDOM 71 mg/dL (74-106); MAGNESIUM 1.4 mg/dL (1.8-2.4)
[2024-05-08 21:53] LABS: SGPT/ALT 26 U/L (13-61)
[2024-05-08 21:54] LABS: CREATININE 0.5 mg/dL (0.55-1.3); PHOSPHOROUS 3.6 mg/dL (2.5-4.9); SGOT/AST 15 U/L (15-37)
[2024-05-08 21:55] LABS: BILIRUBIN,TOTAL 0.6 mg/dL (0.2-1); TOT PROT 5.3 g/dl (6.4-8.2)
[2024-05-08 21:57] LABS: ALK PHOS 78 U/L (45-117); ANION GAP 7 mmol/L (4-13); CALCIUM 5.7 mg/dL (8.5-10.1); POTASSIUM 2.9 mmol/L (3.5-5.1)
[2024-05-08] MEDS ORDERED: POTASSIUM CHLORIDE TABS 20 MEQ TABLET.ER (FP) PO ONE (22:25)
[2024-05-08] MEDS ORDERED: MAGNESIUM SULFATE IN WATER 2 GM/50 ML IVPB IVPB ONE (22:26)
[2024-05-08] MEDS ORDERED: MAGNESIUM 1GM/D5W - 1 GM/100 ML IVPB IVPB ONE (22:31)
[2024-05-08] MEDS: DEXTROSE 5%-NORMAL SALINE 500 ML IV ONE (22:48)
[2024-05-08] MEDS: MAGNESIUM SULF 50% (8.12 MEQ/2 ML-1 GM VIAL) IVPB ONE (22:49)
[2024-05-08] MEDS: POTASSIUM CHLORIDE TABS 20 MEQ TABLET.ER (FP) PO ONE (22:49)
[2024-05-08] MEDS ORDERED: CALCIUM GLUCONATE 10% - 1,000 MG/10 ML VIAL ONE (23:13)
[2024-05-08] MEDS: CALCIUM GLUCONATE 10% - 1,000 MG/10 ML VIAL IVPB ONE (23:27)
[2024-05-09] MEDS: ERGOCALCIFEROL (VIT D2) 50,000 UNIT (1.25 MG) CAPSULE PO ONE (00:55)
[2024-05-09] MEDS: POTASSIUM CHLORIDE ORAL LIQUID 20 MEQ/15 ML PO ONE (00:55)
[2024-05-09] MEDS ORDERED: POTASSIUM CHLORIDE ORAL LIQUID 20 MEQ/15 ML ONE (00:57)
[2024-05-09] MEDS: D5-1/2NS+40 MEQ KCL - 40 MEQ/1,000 ML INFUS.BAG IV SCH (01:17)
[2024-05-09] MEDS: TRIMETHOBENZAMIDE HCL 200MG/2ML INJ IM ONE (02:26)
[2024-05-09] MEDS: CALCIUM (OYSTER SHELL) 500 MG TABLET (FP) PO ONE (03:57)
[2024-05-09 05:04] VITALS: BMI 31.4
[2024-05-09] MEDS: LEVOTHYROXINE NA 75 MCG TABLET (FP) PO SCH (06:35)
[2024-05-09 08:08] LABS: POTASSIUM 4.1 mmol/L (3.5-5.1)
[2024-05-09 08:12] LABS: BLOOD UREA NITROGEN 10.7 mg/dL (7-18)
[2024-05-09 08:13] LABS: ALBUMIN 3.3 g/dl (3.4-5.0)
[2024-05-09 08:15] LABS: CREATININE 0.8 mg/dL (0.55-1.3)
[2024-05-09 08:17] LABS: BILIRUBIN,TOTAL 0.8 mg/dL (0.2-1); TOT PROT 5.9 g/dl (6.4-8.2)
[2024-05-09 08:21] LABS: BASO % 0.5 % (0-2.0); EOS % 4.6 % (0-4.5); HEMATOCRIT 38.7 % (32.4-45.2); HEMOGLOBIN 12.9 GM/dL (10.7-15.3); LYMPH % 23.3 % (8-40); MCH 27.4 pg (25.7-33.7); MCHC 33.3 g/dl (32.0-36.0); MEAN CELL VOLUME 82.4 fl (80-96); MEAN PLT VOLUME 8.7 fl (7.5-11.1); NEUT % 63.6 % (42.8-82.8); PLATELET COUNT 242 10^3/uL (134-434); RDW 14.2 % (11.6-15.6); WHITE BLOOD COUNT 7.4 K/mm3 (4.0-10.0)
[2024-05-09 08:28] LABS: CALCIUM 7.1 mg/dL (8.5-10.1)
[2024-05-09] MEDS: FAMOTIDINE 40 MG TABLET PO SCH (09:04)
[2024-05-09] MEDS: BUDESONIDE/FORMETEROL FUMARATE 160/4.5 mcg INHALER IH SCH (09:05)
[2024-05-09] MEDS: CALCITRIOL 0.25 MCG CAPSULE (FP) PO SCH ×2 (09:05→17:44)
[2024-05-09] MEDS: LOSARTAN POTASSIUM 50 MG TABLET PO SCH (09:05)
[2024-05-09] MEDS: CALCIUM (OYSTER SHELL) 500 MG TABLET (FP) PO SCH ×2 (09:05→09:59)
[2024-05-09] MEDS ORDERED: CALCITRIOL 0.25 MCG CAPSULE (FP) PO SCH (10:00)
[2024-05-09] MEDS ORDERED: CHOLECALCIFEROL (VIT D3) 1,000 UNIT (25 MCG) TABLET PO SCH (10:00)
[2024-05-09] MEDS: ACETAMINOPHEN 325 MG TABLET (FP) PO PRN (13:42)
[2024-05-09] MEDS: PANTOPRAZOLE 20 MG TABLET PO SCH (17:49)
[2024-05-09] MEDS: ATORVASTATIN CA 10 MG TABLET (FP) PO SCH (21:28)
[2024-05-09] MEDS ORDERED: CALCIUM (OYSTER SHELL) 500 MG TABLET (FP) PO ONE (23:07)
[2024-05-10 10:09] LABS: POTASSIUM 4.2 mmol/L (3.5-5.1)
[2024-05-10 10:15] LABS: BLOOD UREA NITROGEN 15.9 mg/dL (7-18)
[2024-05-10 10:18] LABS: CREATININE 0.8 mg/dL (0.55-1.3)
[2024-05-10 10:21] LABS: CALCIUM 8.4 mg/dL (8.5-10.1)
[2024-05-10 12:41] VITALS: BP 188/82; PULSE 68; RESP 22; TEMP 97.3
[2024-05-10] MEDS: amLODIPine BESYLATE 5 MG TABLET (FP) PO ONE (13:46)
== END 2024-05-10 14:32 | disposition home or self-care (01) | DRG 644 ==
LOC: JER 18:34 → JERBED 23:18 → OBSVTOIN 05-09 01:33 → J4W 05-09 03:41
PROVIDERS: ADMIT Internal Medicine; ATTEND Internal Medicine
DX: E89.2 Postprocedural hypoparathyroidism (principal); E87.0 Hyperosmolality and hypernatremia; E83.51 Hypocalcemia; E87.6 Hypokalemia; I10 Essential (primary) hypertension; J44.9 Chronic obstructive pulmonary disease, unspecified; Z90.89 Acquired absence of other organs; Z98.890 Other specified postprocedural states; E78.5 Hyperlipidemia, unspecified; R20.2 Paresthesia of skin; R20.0 Anesthesia of skin; E83.42 Hypomagnesemia; E16.2 Hypoglycemia, unspecified; K21.9 Gastro-esophageal reflux disease without esophagitis; Y83.9 Surgical procedure, unspecified as the cause of abnormal reaction of the patient, or of later complication, without mention of misadventure at the time of the procedure
CPT/HCPCS: 36415; 80048; 80053; 82306; 82330; 83036; 83735; 83970; 84100; 85025; 93005; 93010; 93971-TC; 99285-25; G0378

== ENCOUNTER 2024-07-22 12:42 | Emergency (ER) | payer OTHER, BC ==
[2024-07-22 13:11] VITALS: BP 135/79; PULSE 74; RESP 18; TEMP 98.2; BMI 30.7
[2024-07-22] MEDS ORDERED: INSULIN (NOVOLOG MIX 70/30) 100 UNITS/ML MDV SQ ONE (14:21)
[2024-07-22] MEDS ORDERED: METOCLOPRAMIDE HCL INJECTION 10 MG/2 ML VIAL ONE (14:46)
[2024-07-22] MEDS ORDERED: ACETAMINOPHEN INJECTION 100 ML IVPB ONE (14:47)
[2024-07-22] MEDS: SODIUM CHLORIDE 0.9% 500 ML INFUS.BAG IV ONE (15:03)
[2024-07-22] MEDS: ACETAMINOPHEN 1000 MG/100 ML BAG IVPB ONE (15:09)
[2024-07-22] MEDS: METOCLOPRAMIDE HCL INJECTION 10 MG/2 ML VIAL IVPB ONE (15:51)
== END 2024-07-22 18:17 | disposition home or self-care (01) ==
LOC: JER 12:42
PROC: 3E033NZ Introduction of Analgesics, Hypnotics, Sedatives into Peripheral Vein, Percutaneous Approach (ICD-10-PCS; principal; 2024-07-22)
DX: R51.9 Headache, unspecified (principal); H53.149 Visual discomfort, unspecified
CPT/HCPCS: 99284-25; J0131